=== PATIENT | male | born 1965 | race Caucasian/White ===

== ENCOUNTER 2019-12-05 12:02 | Emergency (ER) | payer OTHER, SELFPAY ==
[2019-12-05 12:21] VITALS: BP 115/77; PULSE 93; RESP 18; TEMP 35.9; O2SAT 100
--- NOTE | 2019-12-05 12:27 | ED.SKABFB ---
HPI - Skin/Abscess/Foreign Bdy General Chief complaint: Skin/Abscess/Foreign Body Stated complaint: skin abscess Time Seen by Provider: 12/05/19 12:21 Source: patient and RN notes reviewed Mode of arrival: ambulatory Limitations: no limitations History of Present Illness HPI narrative: Patient presents today with a painful lump to his right forearm x1 week. States it is very painful and currently rates his pain 10/10. He has been applying Prid salve, but has taken no spzp-mih-mentuso medication for symptoms prior to arrival. States he had some areas in his right axilla that had swollen and ruptured over the past couple of weeks, prior to onset of the forearm symptoms. Denies history of abscesses or cellulitis in the past. MD complaint: abscess/boil Related Data Allergies Allergy/AdvReac Type Severity Reaction Status Date / Time No Known Allergies Allergy Unverified 03/28/12 21:21 Review of Systems Review of Systems: Narrative: CONSTITUTIONAL: Denies body aches, fever, chills, or sweats. EYES: Denies visual changes, redness, or discharge. ENT: Denies rhinorrhea, congestion, sore throat, or otalgia. CARDIOVASCULAR: Denies chest pain, palpitations, or edema. RESPIRATORY: Denies cough or dyspnea. GASTROINTESTINAL: Denies abdominal pain, nausea, vomiting, or diarrhea. GENITOURINARY: Denies dysuria or hematuria. SKIN: Denies rash, itching. + painful lump to right forearm MUSCULOSKELETAL: Denies back pain, joint pain, or myalgia. NEUROLOGIC: Denies headache, numbness, tingling, or weakness. PSYCH: Denies depression or anxiety. [facility] Past Medical History Medical History (Updated 12/05/19 @ 12:56 by Abbi Richard, [facility], ) DVT (deep venous thrombosis) Surgical History Surgical History (Updated 02/27/19 @ 18:52 by Josefina Vasquez PA-C) History of open reduction and internal fixation (ORIF) procedure Social History Social History (Updated 02/27/19 @ 18:52 by Josefina Vasquez PA-C) Smoking status: Current every day smoker Comments At time of signature, I have reviewed and agree with nursing past medical, surgical, social and family history unless otherwise noted. Please see nursing chart for further information. There is no relevant family history pertinent to the presenting complaint Exam Narrative: Exam Narrative: GENERAL: Well-appearing, well-nourished, and in no acute distress. HEAD: Normocephalic, atraumatic. EYES: EOMI. No redness or drainage. Conjunctivae normal. ENT: Mucous membranes pink and moist. NECK: Normal AROM. CHEST: No respiratory distress. EXTREMITIES: 8x6cm area of erythema and mild induratin to the posterior right forearm with 2x2cm area of fluctuance in the center. Tender to palpation. SKIN: Warm, dry, no rash. Capillary refill normal. Normal skin turgor. NEURO: No focal deficits. Alert and oriented x3. Gait steady. PSYCH: Normal affect. No signs of depression or anxiety. Course Vital Signs Vital signs: Vital Signs Temperature 96.6 F L 12/05/19 12:21 Pulse Rate 93 12/05/19 12:21 Respiratory Rate 18 12/05/19 12:21 Blood Pressure 115/77 12/05/19 12:21 Pulse Oximetry 100 12/05/19 12:21 Temperature 96.6 F L 12/05/19 12:21 Pulse Rate 93 12/05/19 12:21 Respiratory Rate 18 12/05/19 12:21 Blood Pressure 115/77 12/05/19 12:21 Pulse Oximetry 100 12/05/19 12:21 Reviewed Procedures Abscess I/D upper extremity: Date of Incision: 12/05/19 Time of Incision: 12:53 Side (if applicable): right Local Anesthetic: none (patient refused anesthetic) Technique: incised with #11 blade Abcess I&D Additional Comments: Patient refused to allow me to instill lidocaine around the area that I would incise. He insisted that I incise the abscess without, because he does not like needles. Made an approximately 1 to 1.5 cm incision in the center of the abscess. After this, patient refused to let me touch his forearm, except to
== END 2019-12-05 13:02 | disposition home or self-care (01) ==
PROVIDERS: Emergency Provider Nurse Practitioner
DX: L02.413 Cutaneous abscess of right upper limb (principal); L03.113 Cellulitis of right upper limb; Z86.718 Personal history of other venous thrombosis and embolism
CPT/HCPCS: 10061; 87070; 87147; 87186; 87205; 99213; A9270; G0463

== ENCOUNTER 2020-11-01 08:28 | Emergency (ER) | payer OTHER, SELFPAY ==
[2020-11-01 08:38] VITALS: BP 122/89; PULSE 96; RESP 16; TEMP 36.4; O2SAT 98
--- NOTE | 2020-11-01 09:03 | ED.GENADULT ---
HPI - General Adult General Chief complaint: Extremity Injury, Upper Stated complaint: left index finger numbness/swollen Time Seen by Provider: 11/01/20 09:03 Source: patient and RN notes reviewed Mode of arrival: ambulatory Limitations: no limitations History of Present Illness HPI narrative: 55-year-old male presents with complaints of LT 2nd (index) finger swelling, warmth, tenderness, and redness for 1 day. ?Ritchie reports putting tar underneath down at work and injuring LT 2nd finger causing injury. ?Drinking all night otherwise no treatment. Denies numbness or tingling. ?No finger weakness of finger. ?Denies fever or chills. ?Denies immobility. ?Exacerbation is movement and palpation of fingers. ?No relieving factor. ?Denies drainage. ?No history of MRSA. Dominant hand is the LEFT HAND. Tetanus not up-to-date. Remains active. The patient reports he has not been diagnosed with COVID-19. ?The patient reports he is not waiting for the results of a COVID-19 lab test. ?The patient reports he does not have weakness or fatigue. ?The patient reports he does not have a new or worsening cough or shortness of breath. ?Denies chest pain. ?The patient reports he does not have any rhinorrhea, congestion, sore throat, loss of taste or smell, nausea, vomiting, abdominal pain, and diarrhea. ?Tolerating po intake well. ?Denies recent traveling. ?Denies concerns for COVID-19 or exposures. ?At this time, the patient is not suspected of having COVID-19. Some parts of this dictation were generated by voice recognition software and may contain typographical and/or grammatical inaccuracies. Related Data Allergies Allergy/AdvReac Type Severity Reaction Status Date / Time No Known Allergies Allergy Verified 11/01/20 08:50 Review of Systems Review of Systems: Narrative: CONSTITUTIONAL: Denies fever, chills, sweats. EYES: Denies visual changes, redness, discharge. ENT: Denies rhinorrhea, congestion, sore throat, otalgia. CARDIOVASCULAR: Denies chest pain, palpitations, edema. RESPIRATORY: Denies dyspnea, wheezing, cough. GASTROINTESTINAL: Denies abdominal pain, nausea, vomiting, diarrhea. SKIN: Denies rash or itching. Complains of LT 2nd (index) finger swelling, warmth, tenderness, and redness. MUSCULOSKELETAL: Denies acute back pain or myalgia. Complaints of LT 2nd (index) finger swelling, warmth, tenderness, and redness warmth, pain, redness, and swelling. NEUROLOGIC: Denies numbness, or focal weakness. PSYCHIATRIC: Denies anxiety or depression. All other systems reviewed are negative, except as documented in HPI and below. [facility] Past Medical History Medical History DVT (deep venous thrombosis) Surgical History Surgical History History of open reduction and internal fixation (ORIF) procedure Family History Family History (Updated 11/01/20 @ 09:27 by EMIGDIO Allan) Father , ETOH ETOH abuse Mother Cancer Social History Social History (Updated 11/01/20 @ 09:28 by EMIGDIO Allan) Smoking packs per day: 1.5 Smoking cigarettes per day: 30.0 Years smoked: 40 Smoking pack-years: 60.00 Smoking status: Current every day smoker Tobacco type: cigarettes Second hand tobacco smoke exposure: Yes Alcohol intake: current Substance use: current Substance use type: marijuana and crack/cocaine Living arrangements: with family Occupation/Education: occupation Gender identity (if verbalized by the patient): Male Sexual Orientation (if Verbalized by the Patient): Straight or Heterosexual Comments At time of signature, agree with the nurse past medical, surgical, social, and family history. There is no relevant family history pertinent to the presenting complaint. Exam Narrative: Exam Narrative: GENERAL: This is a well-nourished, well-developed patient, in no apparent dis
[2020-11-01] MEDS: TETANUS,DIPHTHERIA,AC PERTUSSIS ADULT (0.5 ML) BOOSTRIX IM (09:28)
== END 2020-11-01 09:40 | disposition home or self-care (01) ==
PROVIDERS: Emergency Provider Nurse Practitioner Family
DX: L03.012 Cellulitis of left finger (principal); Z23 Encounter for immunization; F17.210 Nicotine dependence, cigarettes, uncomplicated; Z86.718 Personal history of other venous thrombosis and embolism
CPT/HCPCS: 10060; 87070; 87075; 87147; 87186; 87205; 90471; 90715; 99213; A9270; G0463

== ENCOUNTER 2021-04-30 13:28 | Emergency (ER) | payer OTHER, SELFPAY ==
--- NOTE | ~2021-04-30 | XR_ITS ---
EXAMINATION: XR knee LT min 4V DATE: 04/30/2021 14:14 INDICATION: Severe left knee pain TECHNIQUE: Anteroposterior, 2 oblique and crosstable lateral views of the left knee were obtained COMPARISON: None. FINDINGS: Alignment is normal. No fracture. Joint spaces appear normal on nonweightbearing imaging. No left kn ee joint effusion/layering lipohemarthrosis. Prepatellar soft tissue swelling. IMPRESSION: 1. No osseous abnormality or left knee joint effusion. Reviewed, dictated and finalized at location B. [employer]
[2021-04-30 13:34] VITALS: BP 123/82; PULSE 70; RESP 18; TEMP 36.7; O2SAT 100
--- NOTE | 2021-04-30 13:42 | ED.LOWEXIN ---
HPI - Extremity Injury (Lower) General Chief Complaint: Extremity Injury, Lower Stated Complaint: left leg burning Time Seen by Provider: 04/30/21 13:42 Source: patient Mode of arrival: ambulatory Limitations: no limitations History of Present Illness HPI Narrative: Patient is a 55 yo male with a history of sciatica presenting for evaluation of left knee pain. Pain is 10/10 in severity, burning in nature. Patient placed a ratchet strap on his leg for compression to alleviate his pain which did not improve the pain. Patient denies any history of injury or surgical intervention in the left leg. Pt without history of recent trauma or injury in this leg. Pt has tried naproxen and tizanidine without improvement in his symptoms. Pt does endorse lower back pain on the left side which radiates into his left leg. States this is consistent with his previous sciatica. He denies any difficulty with bowel or bladder function. No saddle anesthesia. No focal numbness. No foot drop. No difficulty with ambulation. There is no redness of the leg. The left knee is swollen. No numbness. No bruising. Pt has been ambulatory. Related Data Home Medications Medication Instructions Recorded Confirmed naproxen 04/30/21 tizanidine mg 04/30/21 Allergies Allergy/AdvReac Type Severity Reaction Status Date / Time No Known Allergies Allergy Verified 04/30/21 13:29 Review of Systems Review of Systems: CONSTITUTIONAL: Denies fever CARDIOVASCULAR: Denies chest pain RESPIRATORY: Denies cough or dyspnea. GASTROINTESTINAL: Denies abdominal pain SKIN: Denies rash MUSCULOSKELETAL: Reports chronic lower back pain, reports left knee pain, left knee swelling NEUROLOGIC: Denies headache PMFSH Past Medical History Medical History DVT (deep venous thrombosis) Surgical History Surgical History History of open reduction and internal fixation (ORIF) procedure Family History Family History Father , ETOH ETOH abuse Mother Cancer Social History Social History Smoking packs per day: 1.5 Smoking cigarettes per day: 30.0 Years smoked: 40 Smoking pack-years: 60.00 Smoking status: Current every day smoker Tobacco type: cigarettes Second hand tobacco smoke exposure: Yes Alcohol intake: current Substance use: current Substance use type: marijuana and crack/cocaine Gender identity (if verbalized by the patient): Male Sexual Orientation (if Verbalized by the Patient): Straight or Heterosexual Exam Narrative: GENERAL: Awake, alert, conversant HEAD: Normocephalic, atraumatic. EYES: PERRLA and EOMI. ENT: Nares clear, no rhinorrhea or epistaxis. Mucous membranes moist. NECK: Supple. CHEST: No respiratory distress, breathing even and non labored HEART: Regular rate, sinus rhythm ABDOMEN:Non distended, non tender EXTREMITIES: Patient has tenderness to the left lateral thigh, with intact flexion and extension of the left knee. There is no effusion, erythema, induration or wounds. No rash. No evidence of streaking cellulitis. Popliteal pulse 2+. Intact distal sensation. Patient is ambulatory. Strength 5/5. SKIN: Warm, dry, no rash. NEURO:No focal deficits. Alert and oriented x3 Course Vital Signs Vital signs: Vital Signs Temperature 36.7 C 04/30/21 13:34 Pulse Rate 70 04/30/21 13:34 Respiratory Rate 18 04/30/21 13:34 Blood Pressure 123/82 04/30/21 13:34 Pulse Oximetry 100 04/30/21 13:34 Temperature 36.7 C 04/30/21 13:34 Pulse Rate 70 04/30/21 13:34 Respiratory Rate 18 04/30/21 13:34 Blood Pressure 123/82 04/30/21 13:34 Pulse Oximetry 100 04/30/21 13:34 MDM - Extremity Injury (Lower) MDM Narrative Medical decision making narrative: Etienne
--- NOTE | 2021-04-30 14:03 | PC.NURSE ---
Addendum entered by Jenifer Jhaveri RN 04/30/21 14:23: 1403-EMANUEL HAGER, PROCEED WITH ADMINISTRATION OF MORPHINE DESPITE PATIENT NOT HAVING A RIDE HOME. Original Note: 1403-EMANUEL SLATER, PROCEED WITH ADMINISTRATION OF MORPHINE DESPITE PATIENT NOT HAVING A RIDE HOME.
[2021-04-30] MEDS: ONDANSETRON INJ 4 MG/2 ML VIAL IV PUSH (15:08)
[2021-04-30] MEDS: oxyCODONE/ACETAMINOPHEN (*CRX) 5-325 MG TABLET 1 TABLET PO (15:09)
[2021-04-30 15:16] LABS: Basophils Absolute Auto 0.1 K/mm3 (0.0-0.1); Eosinophils Absolute Auto 0.5 K/mm3 (0-0.3); Eosinophils Percent Auto 6.9 % (0-4.4); Hematocrit 38.8 % (42.0-52.0); Hemoglobin 13.2 g/dL (14.0-18.0); Immature Granulocyte Absolute 0.02 K/mm3 (0.00-0.031); Immature Granulocyte Percent A 0.3 % (0-0.5); Lymphocytes Absolute Auto 1.76 K/mm3 (0.9-3.2); Lymphocytes Percent Auto 25.2 % (18.3-44.2); Mean Corpuscular Volume 88.2 fl (80-100); Mean Platelet Volume 9.5 fl (7.4-10.4); Monocytes Absolute Auto 0.6 K/mm3 (0.1-0.6); Monocytes Percent Auto 8.2 % (2.6-8.5); Neutrophils Absolute Auto 4.1 K/mm3 (1.3-6.7); Neutrophils Percent Auto 58.4 % (45.5-73.1); Platelet Count Result 358 k/mm3 (150-375); Red Cell Distribution Width 13.2 % (11.5-14.5)
[2021-04-30] MEDS: predniSONE 20 MG TABLET 60 MG PO (15:21)
[2021-04-30] MEDS: KETOROLAC 15 MG/ML VIAL (*BKC) IV PUSH (15:23)
[2021-04-30 15:26] LABS: Anion Gap 7 mmol/L (8-16); Blood Urea Nitrogen 17 mg/dL (9-20); CRP < 0.5 mg/dL (<1.0); Calcium 9.1 mg/dL (8.4-10.2); Carbon Dioxide 28 mmol/L (22-30); Chloride 102 mmol/L (98-107); Estimated CRCL calculation 112 ml/min; Estimated Glomerular Filt Rate > 60; Glucose 107 mg/dL (65-110); Potassium 3.9 mmol/L (3.4-5.0); Sodium 137 mmol/L (137-145)
[2021-04-30 15:41] LABS: Erythrocyte Sedimentation Rate 18 mm/hr (0-20)
[2021-04-30 16:04] VITALS: BP 130/70; PULSE 80; RESP 18; O2SAT 99
== END 2021-04-30 16:07 | disposition home or self-care (01) ==
PROVIDERS: Emergency Provider Emergency Medicine
DX: M54.10 Radiculopathy, site unspecified (principal); G57.92 Unspecified mononeuropathy of left lower limb; M54.42 Lumbago with sciatica, left side; Z86.718 Personal history of other venous thrombosis and embolism; F17.210 Nicotine dependence, cigarettes, uncomplicated
CPT/HCPCS: 36415; 73564; 80048; 85025; 85652; 86140; 96374; 96375; 99284; A9270; J1885; J2405; J7512